=== PATIENT | male | born 1990 | race American Indian/Alaskan Native ===

== ENCOUNTER 2017-01-31 18:06 | Emergency (ER) | payer OTHER ==
[2017-01-31 18:30] VITALS: BP 187/91
[2017-01-31] MEDS ORDERED: TYLENOL PO ONE (20:15)
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
[2017-01-31] MEDS ORDERED: BOOSTRIX IM ONE (21:16)
== END 2017-01-31 21:25 | disposition home or self-care (01) ==
LOC: ED 18:06
DX: S06.0X9A Concussion with loss of consciousness of unspecified duration, initial encounter (principal); S80.812A Abrasion, left lower leg, initial encounter; V49.49XA Driver injured in collision with other motor vehicles in traffic accident, initial encounter; Y93.89 Activity, other specified; Y92.89 Other specified places as the place of occurrence of the external cause; Y99.8 Other external cause status
CPT/HCPCS: 70450; 72125; 90471; 90715